=== PATIENT | female | born 1970 | race Caucasian/White ===

== ENCOUNTER → 2017-04-01 | Outpatient (REF) | payer OTHER ==
[~2017-04-01] MED LIST: CYCL10TA PO; EXCETAB68 PO; IBUP200C PO; MULTCAP8 PO; NAPR500T PO; VITA400C29 PO
== END ==
LOC: M LAB REF 13:24
PROVIDERS: ATTEND Obstetrics & Gynecology
DX: Z12.4 Encounter for screening for malignant neoplasm of cervix (principal)

== ENCOUNTER 2017-04-03 14:01 | Emergency (ER) | payer OTHER ==
[~2017-04-03] VITALS: Ht 162.6 cm; Wt 68.0 kg
[2017-04-03 14:02] VITALS: BP 150/63
[2017-04-03] MEDS ORDERED: MULTCAP8 PO (14:19)
[2017-04-03] MEDS ORDERED: EXCETAB68 PO (14:19)
[2017-04-03] MEDS ORDERED: IBUP200C PO (14:19)
[2017-04-03] MEDS ORDERED: VITA400C29 PO (14:19)
[2017-04-03] MEDS ORDERED: NAPR500T PO (14:36)
[2017-04-03] MEDS ORDERED: CYCL10TA PO (14:36)
== END 2017-04-03 15:35 | disposition home or self-care (01) ==
LOC: M ED 14:40
DX: S46.811A Strain of other muscles, fascia and tendons at shoulder and upper arm level, right arm, initial encounter (principal); X50.3XXA Overexertion from repetitive movements, initial encounter; Y92.89 Other specified places as the place of occurrence of the external cause; Y93.89 Activity, other specified; Y99.0 Civilian activity done for income or pay; F17.200 Nicotine dependence, unspecified, uncomplicated; Z79.899 Other long term (current) drug therapy; Z88.0 Allergy status to penicillin; Z91.040 Latex allergy status

== ENCOUNTER 2017-04-08 17:40 | Emergency (ER) | payer OTHER ==
[~2017-04-08] VITALS: Ht 165.1 cm; Wt 67.6 kg
[2017-04-08] MEDS ORDERED: IPRATROPIUM 0.5MG/ALBUTEROL 2.5MG INH SOL UD 3ML (DUONEB)(J7620) NEB ONE (19:15)
[2017-04-08] MEDS ORDERED: predniSONE 20 MG TAB PO ONE (19:15)
--- NOTE | 2017-04-08 19:44 | REP ---
Clinical: Cough. Technique: PA and lateral. Comparison: None. Findings: Subtle basilar atelectasis suggested. No focal consolidation. Mediastinum and cardiac silhouette normal. No effusion. No pneumothorax. Skeletal structures intact. Impression: Subtle basilar atelectasis. Signed by Mitesh Tian MD 04/08/2017 07:35 P
[2017-04-08] MEDS ORDERED: GUAISYP5 PO (19:49)
[2017-04-08] MEDS ORDERED: ALBU17IN INH (19:49)
[2017-04-08] MEDS ORDERED: ACET30TAB PO (19:49)
[2017-04-08] MEDS ORDERED: PRED20TA PO (19:49)
[2017-04-08 19:54] VITALS: BP 114/64
== END 2017-04-08 20:03 | disposition home or self-care (01) ==
LOC: M ED 19:25
DX: J44.0 Chronic obstructive pulmonary disease with (acute) lower respiratory infection (principal); J98.11 Atelectasis; F17.210 Nicotine dependence, cigarettes, uncomplicated; Z88.0 Allergy status to penicillin

== ENCOUNTER 2017-04-22 15:27 | Emergency (ER) | payer OTHER ==
[~2017-04-22] VITALS: Ht 162.6 cm; Wt 68.0 kg
[~2017-04-22 15:27] MED LIST changes: +ACET30TAB PO; +ALBU17IN INH; +GUAISYP5 PO; +PRED20TA PO
[2017-04-22 15:28] VITALS: BP 119/73
[2017-04-22] MEDS ORDERED: ALBU17IN INH (16:08)
[2017-04-22] MEDS ORDERED: ZITHTAB PO (16:08)
== END 2017-04-22 16:20 | disposition home or self-care (01) ==
LOC: M ED 16:13
DX: J44.0 Chronic obstructive pulmonary disease with (acute) lower respiratory infection (principal); F17.200 Nicotine dependence, unspecified, uncomplicated; Z88.0 Allergy status to penicillin; Z91.040 Latex allergy status; Z79.899 Other long term (current) drug therapy

== ENCOUNTER 2017-06-27 00:37 | Emergency (ER) | payer OTHER ==
[~2017-06-27 00:37] MED LIST changes: -IBUP200C PO; +IBUP200C10 PO; +VITA-110 PO; -VITA400C29 PO; +ZITHTAB PO
[2017-06-27 00:53] VITALS: BP 116/59
[2017-06-27] MEDS ORDERED: DERMABOND TOPICAL SKIN ADHESIVE TOP ONE (01:45)
== END 2017-06-27 02:35 | disposition home or self-care (01) ==
LOC: M ED 00:37
DX: S61.011A Laceration without foreign body of right thumb without damage to nail, initial encounter (principal); W27.4XXA Contact with kitchen utensil, initial encounter; Y92.511 Restaurant or cafe as the place of occurrence of the external cause; Y93.G1 Activity, food preparation and clean up; Y99.0 Civilian activity done for income or pay; J45.909 Unspecified asthma, uncomplicated; G43.909 Migraine, unspecified, not intractable, without status migrainosus; Z88.0 Allergy status to penicillin; Z91.040 Latex allergy status

== ENCOUNTER 2017-06-30 14:19 | Emergency (ER) | payer OTHER ==
[~2017-06-30] VITALS: Ht 165.1 cm; Wt 76.2 kg
[2017-06-30] MEDS ORDERED: predniSONE 20 MG TAB PO ONE (16:00)
[2017-06-30] MEDS ORDERED: CLINDAMYCIN 150 MG CAP PO ONE (16:00)
[2017-06-30] MEDS ORDERED: ALBUTEROL 90 MCG/ACT 8GM HFA INHALER INH ONE (16:00)
[2017-06-30] MEDS ORDERED: ALBU17IN INH (16:01)
[2017-06-30] MEDS ORDERED: CLEO300C2 PO (16:01)
[2017-06-30] MEDS ORDERED: PRED10TA2 PO (16:01)
[2017-06-30 16:16] VITALS: BP 124/78
== END 2017-06-30 16:17 | disposition home or self-care (01) ==
LOC: M ED 14:19
DX: Z77.120 Contact with and (suspected) exposure to mold (toxic) (principal); J45.901 Unspecified asthma with (acute) exacerbation; J06.9 Acute upper respiratory infection, unspecified; H66.92 Otitis media, unspecified, left ear; F17.210 Nicotine dependence, cigarettes, uncomplicated; Z91.040 Latex allergy status; Z88.0 Allergy status to penicillin

== ENCOUNTER 2017-10-06 01:14 | Emergency (ER) | payer OTHER ==
[~2017-10-06] VITALS: Ht 165.1 cm; Wt 65.5 kg
[~2017-10-06 01:14] MED LIST changes: +CLEO300C2 PO; +PRED10TA2 PO
[2017-10-06 01:15] VITALS: BP 120/71
--- NOTE | 2017-10-06 08:45 | REP ---
Clinical: Trauma . Technique: Internal rotation, external rotation, and Y view. Findings: No acute fracture or dislocation. The acromioclavicular and glenohumeral joints are intact. No periarticular calcifications or degenerative changes are appreciated. Sub acromial space is normal. Surrounding soft tissues are unremarkable. Y-view demonstrates chronic bowing to the humeral shaft. Impression: No acute fracture or dislocation. Signed by Mitesh Tian MD 10/06/2017 08:35 A
== END 2017-10-06 05:30 | disposition home or self-care (01) ==
LOC: M ED 01:14
DX: S40.012A Contusion of left shoulder, initial encounter (principal); W22.8XXA Striking against or struck by other objects, initial encounter; Y92.89 Other specified places as the place of occurrence of the external cause; Y93.89 Activity, other specified; Y99.8 Other external cause status; G43.909 Migraine, unspecified, not intractable, without status migrainosus; Z88.0 Allergy status to penicillin; Z91.040 Latex allergy status; F17.210 Nicotine dependence, cigarettes, uncomplicated

== ENCOUNTER 2019-05-21 19:45 | Emergency (ER) | payer MEDICAID, OTHER, SELFPAY ==
[~2019-05-21] VITALS: Ht 165.1 cm; Wt 70.5 kg
[~2019-05-21 19:45] MED LIST changes: +ACET-716 PO; -ACET30TAB PO; -IBUP200C10 PO; +IBUP200C25 PO; +NAPR-837 PO; -NAPR500T PO
[2019-05-21 19:46] VITALS: BP 128/70
[2019-05-21] MEDS ORDERED: TETRACAINE 0.5% OPHTH SOLN 4ML OS ONE (20:15)
[2019-05-21] MEDS ORDERED: FLUORESCEIN OPHTH 1 MG STRIP OS ONE (20:15)
[2019-05-21] MEDS ORDERED: ERYTHROMYCIN OPHTH OINT OS ONE (20:30)
[2019-05-21] MEDS ORDERED: ERYT1OIN26 OS (20:38)
== END 2019-05-21 20:47 | disposition home or self-care (01) ==
LOC: M ED 19:45
DX: H10.022 Other mucopurulent conjunctivitis, left eye (principal); G43.109 Migraine with aura, not intractable, without status migrainosus; Z72.0 Tobacco use; Z88.0 Allergy status to penicillin; Z91.040 Latex allergy status

== ENCOUNTER 2020-09-23 11:23 | Emergency (ER) | payer MEDICAID, OTHER ==
[~2020-09-23] VITALS: Ht 165.1 cm; Wt 71.3 kg
[~2020-09-23 11:23] MED LIST changes: +CYCL-707 PO; -CYCL10TA PO; +ERYT5OIN25 OS
[2020-09-23] MEDS ORDERED: IMIT100T PO (11:36)
[2020-09-23 12:46] LABS: BILIRUBIN, URINE MANUAL OBSCURED (NEGATIVE); GLUCOSE, URINE (UA) MANUAL OBSCURED mg/dL (NEGATIVE); KETONE, URINE MANUAL OBSCURED mg/dL (NEGATIVE); UROBILINOGEN, URINE MANUAL OBSCURED mg/dl (NORMAL)
[2020-09-23 12:54] LABS: BACTERIA, URINE MOD AMOUNT; HYALINE CAST, URINE NONE SEEN /lpf (0-1); RBC, URINE TNTC /hpf (0-3); SQUAMOUS EPITHELIAL CELL URINE SMALL AMOUNT /hpf (SMALL AMT)
[2020-09-23 13:31] LABS: BASO # 0.1 10^3/uL (0.0-0.2); BASO % 0.9 % (0.0-1.0); EOS # 0.2 10^3/uL (0.0-0.5); EOS % 1.4 % (0.0-3.0); HEMATOCRIT 34.1 % (36.0-47.0); HEMOGLOBIN 11.3 g/dl (12.0-15.5); LYMPH # 3.7 10^3/uL (1.5-5.0); MEAN CORPUSCULAR HEMOGLOBIN 28.5 pg (27.0-33.0); MEAN CORPUSCULAR HGB CONC 33.1 g/dl (32.0-36.5); MEAN CORPUSCULAR VOLUME 85.9 fl (80.0-96.0); MONO # 1.1 10^3/uL (0.0-0.8); NEUTROPHILS # 8.6 10^3/uL (1.5-8.5); NEUTROPHILS % 62.2 % (36.0-66.0); PLATELET COUNT, AUTOMATED 450 10^3/uL (150-450); RED BLOOD COUNT 3.97 10^6/uL (4.00-5.40); WHITE BLOOD COUNT 13.8 10^3/uL (4.0-10.0)
[2020-09-23 13:55] LABS: ALBUMIN 3.8 GM/DL (3.2-5.2); ALT/SGPT 20 U/L (12-78); BILIRUBIN,DIRECT < 0.1 MG/DL (0.0-0.2); BILIRUBIN,TOTAL 0.2 MG/DL (0.2-1.0); TOTAL PROTEIN 6.7 GM/DL (6.4-8.2)
[2020-09-23 14:15] LABS: HCG, SERUM QUALITATIVE NEGATIVE (NEGATIVE)
[2020-09-23 15:20] LABS: BLOOD UREA NITROGEN 9 MG/DL (7-18); CARBON DIOXIDE LEVEL 29 mmol/L (20-29); CHLORIDE LEVEL 104 MEQ/L (98-107); CREATININE FOR GFR 0.75 MG/DL (0.55-1.30); GLOMERULAR FILTRATION RATE > 60.0 (>51); GLUCOSE, FASTING 87 MG/DL (70-100); SODIUM LEVEL 140 MEQ/L (136-145)
[2020-09-23] MEDS ORDERED: ISOVUE-370 76% 100ML VIAL As Ordered ONE (15:28)
--- NOTE | 2020-09-23 16:35 | REP ---
INDICATION: hematuria, fmh bladder cancer, urogram. COMPARISON: None. TECHNIQUE: CT abdomen and pelvis performed without IV contrast. CT abdomen pelvis performed with IV contrast as well, following intravenous administration of 100 cc of Isovue 370. Sagittal, coronal and 3D MIP reconstruction images are performed. FINDINGS: Lung bases: Show some minor subsegmental atelectatic change. Nothing acute. Liver: Few tiny subcentimeter low-density foci seen most consistent with small cysts and which need no further evaluation. Gallbladder: A no calcified stone or mass. No pericholecystic fluid. Common duct without dilatation. Spleen: Not enlarged. No focal lesion. Tiny splenule inferior to the spleen as anatomic variation. Adrenals: Normal. Pancreas: Normal. Kidneys: There are a couple of punctate hyperdensities in 1 or 2 pyramids in each kidney that may reflect very early calcification. There is no hydronephrosis, definite stone formation or perinephric fluid. No hydroureter. Contrast exam shows no solid mass. Ureters show normal course to the bladder without dilatation or stone with no filling defects in the ureters or collecting system. Small and large bowel: Unremarkable. Free fluid: None. Adenopathy: None. Appendix: Not inflamed. Osseous structures: No acute findings Pelvis: Bladder without wall thickening or stone. However, there is irregular 2.7 cm mass projecting into the bladder from its posterior left wall, suspicious for bladder tumor. Uterus anteverted tilted towards the right. No adnexal or pelvic mass. Small bowel loops and colon in the deep pelvis were unremarkable. No ventral or inguinal hernia nor pelvic lymphadenopathy. IMPRESSION: 1. A 2.7 cm irregular mass arising from the posterior bladder wall on the left. There are no other masses. This is suspicious for a bladder malignancy. I do not see stones or other findings to would suggest this is clot although bad is a differential diagnostic consideration. I favor the former. 2. Kidneys collecting systems and ureters without acute finding. There are subtle 1 mm densities within the pyramids, 1 or 2 on each side that may reflect some early calcification but no formed stone. 3. Collecting systems and ureters grossly intact. No renal mass. No other findings. <Electronically signed by Aaron Morales > 09/23/20 2213
[2020-09-23 17:25] VITALS: BP 128/60
--- NOTE | 2020-09-25 09:55 | ED PDOC ---
Post-Departure Follow-Up ct abd/p faxed to dr morrison for fu Alexanrdo Zhang MD Sep 25, 2020 09:55
== END 2020-09-23 17:25 | disposition home or self-care (01) ==
LOC: M ED 11:23
DX: R31.9 Hematuria, unspecified (principal); N32.9 Bladder disorder, unspecified; D64.9 Anemia, unspecified; G43.909 Migraine, unspecified, not intractable, without status migrainosus; F17.200 Nicotine dependence, unspecified, uncomplicated; F12.10 Cannabis abuse, uncomplicated; Z88.0 Allergy status to penicillin; Z91.040 Latex allergy status
CPT/HCPCS: 74178; 80048; 80076; 81000; 84703; 85025; 87086; 87661; 99284; Q9967

== ENCOUNTER → 2020-10-01 | Outpatient (REF) | payer OTHER ==
[~2020-10-01] MED LIST changes: +IMIT100T PO
== END ==
LOC: M SMT 13:18
PROVIDERS: ATTEND Urology
DX: R31.0 Gross hematuria (principal)

== ENCOUNTER → 2020-10-09 | Outpatient (REF) | payer OTHER ==
[2020-10-09 16:56] LABS: BASO # 0.1 10^3/uL (0.0-0.2); BASO % 0.9 % (0.0-1.0); EOS # 0.2 10^3/uL (0.0-0.5); EOS % 1.8 % (0.0-3.0); HEMATOCRIT 23.9 % (36.0-47.0); HEMOGLOBIN 7.3 g/dl (12.0-15.5); LYMPH # 2.9 10^3/uL (1.5-5.0); LYMPH % 23.6 % (24.0-44.0); MEAN CORPUSCULAR HEMOGLOBIN 26.4 pg (27.0-33.0); MEAN CORPUSCULAR HGB CONC 30.5 g/dl (32.0-36.5); MEAN CORPUSCULAR VOLUME 86.6 fl (80.0-96.0); MONO # 0.9 10^3/uL (0.0-0.8); MONO % 7.5 % (0.0-5.0); NEUTROPHILS # 8.2 10^3/uL (1.5-8.5); NEUTROPHILS % 65.3 % (36.0-66.0); PLATELET COUNT, AUTOMATED 629 10^3/uL (150-450); RED BLOOD COUNT 2.76 10^6/uL (4.00-5.40); WHITE BLOOD COUNT 12.5 10^3/uL (4.0-10.0)
[2020-10-09 17:26] LABS: ALBUMIN 3.4 GM/DL (3.2-5.2); ALT/SGPT 51 U/L (12-78); BILIRUBIN,TOTAL 0.3 MG/DL (0.2-1.0); BLOOD UREA NITROGEN 9 MG/DL (7-18); CALCIUM LEVEL 8.7 MG/DL (8.5-10.1); CARBON DIOXIDE LEVEL 27 MEQ/L (21-32); CHLORIDE LEVEL 107 MEQ/L (98-107); CREATININE FOR GFR 0.76 MG/DL (0.55-1.30); GLOMERULAR FILTRATION RATE > 60.0 (>51); GLUCOSE, FASTING 95 MG/DL (70-100); POTASSIUM SERUM 4.5 MEQ/L (3.5-5.1); SODIUM LEVEL 140 MEQ/L (136-145); TOTAL PROTEIN 6.5 GM/DL (6.4-8.2)
== END ==
LOC: M LAB REF 16:27
PROVIDERS: ATTEND Physician Assistant
DX: Z01.818 Encounter for other preprocedural examination (principal)

== ENCOUNTER → 2020-10-14 | Outpatient (CLI) | payer OTHER ==
[2020-10-14 12:34] LABS: HEMATOCRIT 23.3 % (36.0-47.0); MEAN CORPUSCULAR VOLUME 83.2 fl (80.0-96.0); PLATELET COUNT, AUTOMATED 649 10^3/uL (150-450); WHITE BLOOD COUNT 12.8 10^3/uL (4.0-10.0)
[2020-10-14 13:03] LABS: BLOOD UREA NITROGEN 9 MG/DL (7-18); CALCIUM LEVEL 8.7 MG/DL (8.5-10.1); CARBON DIOXIDE LEVEL 29 MEQ/L (21-32); CHLORIDE LEVEL 104 MEQ/L (98-107); CREATININE FOR GFR 0.91 MG/DL (0.55-1.30); GLOMERULAR FILTRATION RATE > 60.0 (>51); GLUCOSE, FASTING 108 MG/DL (70-100); SODIUM LEVEL 137 MEQ/L (136-145)
--- NOTE | 2020-10-14 14:56 | ECGEPIP ---
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
--- NOTE | 2020-10-14 20:50 | REP ---
INDICATION: GROSS HEMATURIA- EKG FIRST COMPARISON: 04/08/2017 TECHNIQUE: PA and lateral. FINDINGS: The mediastinum and cardiac silhouette are normal. The lung mathews are clear and without acute consolidation, effusion, or pneumothorax. The skeletal structures are intact and normal. IMPRESSION: No acute cardiopulmonary process. <Electronically signed by Mitesh Tian > 10/14/20 [id number]
== END ==
LOC: M LAB 11:50
PROVIDERS: ATTEND Urology
DX: R31.0 Gross hematuria (principal); N32.89 Other specified disorders of bladder; R94.31 Abnormal electrocardiogram [ECG] [EKG]

== ENCOUNTER → 2020-10-18 | Outpatient (CLI) | payer OTHER ==
[~2020-10-18] MED LIST changes: +ACET325T43 PO; +EXCETAB33 PO; +GARL500C2 PO; +KETO10TAB PO; +NICO1DIS12 TD; +[UNRECOGNIZED DRUG - OTHER] PO
== END ==
LOC: M LABSMTC 12:18
PROVIDERS: ATTEND Anesthesiology
DX: Z01.812 Encounter for preprocedural laboratory examination (principal); Z20.828 Contact with and (suspected) exposure to other viral communicable diseases

== ENCOUNTER 2020-10-23 10:02 | Day surgery (SDC) | payer OTHER ==
[~2020-10-23] VITALS: Ht 162.6 cm; Wt 74.4 kg
[~2020-10-23 10:02] MED LIST changes: -KETO10TAB PO; +LR 1,000 ML IV ONE
[2020-10-23] MEDS ORDERED: dexameTHASONE 4 MG/ML 1ML VIAL (J1100 PER 1MG) As Ordered ONE (10:49)
[2020-10-23] MEDS ORDERED: propofoL 200 MG/20 ML VIAL As Ordered ONE (10:49)
[2020-10-23] MEDS ORDERED: ACETAMINOPHEN 1000MG 100ML IV BTL (OFIRMEV) (J0131 PER 10MG) As Ordered ONE (10:49)
[2020-10-23] MEDS ORDERED: ONDANSETRON 4MG/2ML VIAL As Ordered ONE (10:49)
[2020-10-23] MEDS ORDERED: LIDOCAINE 2% 100MG/5ML SDV (FOR ANES.) As Ordered ONE (10:49)
[2020-10-23] MEDS ORDERED: ROCURONIUM BROMIDE 50 MG/5 ML VIAL As Ordered ONE (10:49)
[2020-10-23] MEDS ORDERED: SUGAMMADEX SODIUM 500 MG/5 ML VIAL (BRIDION) As Ordered ONE (10:49)
[2020-10-23] MEDS ORDERED: MIDAZOLAM INJ 2MG/2ML VIAL (J2250 PER 1MG) As Ordered ONE (10:50)
[2020-10-23] MEDS ORDERED: fentaNYL 100 MCG/2 ML INJECTION (J3010) As Ordered ONE ×2 (10:50→12:38)
[2020-10-23] MEDS ORDERED: ceFAZolin SOD 2 GM in IV 1 EA IV ONE (11:00)
[2020-10-23] MEDS ORDERED: PHENYLephrine HCL 500 MCG/5 ML (100MCG/ML) SYRINGE (J2370) As Ordered ONE (12:38)
[2020-10-23] MEDS ORDERED: ALBUTEROL SULFATE 2.5 MG/0.5 ML INH NEB SOLN As Ordered ONE (13:12)
[2020-10-23] MEDS ORDERED: IBUPROFEN 800 MG TAB As Ordered ONE (13:35)
[2020-10-23] MEDS ORDERED: fentaNYL 100 MCG/2 ML INJECTION (J3010) IV PRN (14:00)
[2020-10-23] MEDS ORDERED: MORPHINE 2 MG/ML 1ML VIAL (J2270) IV PRN (14:00)
[2020-10-23] MEDS ORDERED: ALBUTEROL SULFATE 2.5 MG/0.5 ML INH NEB SOLN INH ONE (14:00)
[2020-10-23] MEDS ORDERED: oxyCODONE 5MG TAB PO PRN (14:00)
[2020-10-23] MEDS ORDERED: METOCLOPRAMIDE INJ 10MG/2ML VIAL (J2765 PER 1) IV PRN (14:00)
[2020-10-23] MEDS ORDERED: ONDANSETRON 4MG/2ML VIAL IV PRN (14:00)
[2020-10-23] MEDS ORDERED: IBUPROFEN 800 MG TAB PO ONE (14:00)
[2020-10-23] MEDS ORDERED: LR 1,000 ML IV SCH (14:00)
[2020-10-23] MEDS ORDERED: ACETAMINOPHEN TAB 650MG DOSE (2X325MG) PO PRN (14:15)
[2020-10-23 14:20] VITALS: BP 118/57
--- NOTE | 2020-10-23 14:42 | RO ---
OPERATIVE NOTE DATE OF OPERATION: 10/23/2020 PREOPERATIVE DIAGNOSIS: Bladder tumor. POSTOPERATIVE DIAGNOSIS: Bladder tumor. PROCEDURE: Cystoscopy, transurethral resection of bladder tumor (between 2 and 5 cm), examination under anesthesia. SURGEON: Carl Fontenot MD ELECTRIC ARC WELDER: None. ANESTHESIA: General. OPERATIVE INDICATIONS: This is a 50-year-old female who was found to have approximately 2.5 cm bladder tumor on recent office cystoscopy. She was brought to the operating room today for treatment. DESCRIPTION OF PROCEDURE: The patient was brought to the operating room and general anesthesia was induced. Prophylactic antibiotics were infused. She was placed in dorsal lithotomy position and prepped and draped in usual sterile fashion. A bimanual pelvic exam under was then performed. It was negative for palpable bladder masses. The bladder was freely mobile. At this point resectoscope was inserted in the urethral meatus and advanced into the bladder using the visual obturator. The bladder was then thoroughly examined and the only abnormality seen was approximately 2.5 cm tumor just above the level of the left ureteral orifice. It was not involving the ureteral orifice. I then utilized bipolar loop to resect the tumor completely. I did resect down to the muscle layer. The tumor specimen was removed from the bladder and sent for pathologic analysis. I then cauterized the base of resection using the coagulation current. Once satisfied with hemostasis I then examined the left ureteral orifice and it continued to efflux clear urine without any difficulty. At this point the resectoscope was removed and an 18-Syrian Victor catheter was inserted into the bladder. The catheter was connected to gravity damage and this marked the conclusion of the procedure. The catheter balloon was filled with 10 mL of sterile water. The patient was taken out of dorsal lithotomy position, awakened from anesthesia and transported to recovery room in stable condition. ESTIMATED BLOOD LOSS: 5 mL. COMPLICATIONS: None. SPECIMEN: Bladder tumor. PLAN: The patient will follow up in urology clinic in approximately one week for catheter removal and to discuss pathology results. CASSANDRA
[2020-10-23] MEDS ORDERED: KETO10TAB PO (15:42)
== END 2020-10-23 14:30 | disposition home or self-care (01) ==
LOC: M SDC 10:02
PROVIDERS: ATTEND Urology
DX: C67.9 Malignant neoplasm of bladder, unspecified (principal); G43.909 Migraine, unspecified, not intractable, without status migrainosus; J45.909 Unspecified asthma, uncomplicated; F41.9 Anxiety disorder, unspecified; F32.9 Major depressive disorder, single episode, unspecified; Z79.899 Other long term (current) drug therapy; Z79.82 Long term (current) use of aspirin; Z91.040 Latex allergy status; Z91.010 Allergy to peanuts
CPT/HCPCS: 52235; 88305; J0131; J1100; J2250; J2370; J2405; J3010

== ENCOUNTER 2020-11-12 06:52 | Inpatient (IN) | payer OTHER ==
[~2020-11-12] VITALS: Ht 165.1 cm; Wt 76.5 kg
[~2020-11-12 06:52] MED LIST changes: +KETO10TAB PO; -LR 1,000 ML IV ONE
[2020-11-12] MEDS ORDERED: NICOTINE 21MG/24HR 1 EA TRANSDERMAL TD ONE (08:15)
[2020-11-12 08:42] LABS: HEMATOCRIT 25.4 % (36.0-47.0); HEMOGLOBIN 7.1 g/dl (12.0-15.5); MEAN CORPUSCULAR HEMOGLOBIN 21.5 pg (27.0-33.0); MEAN CORPUSCULAR VOLUME 76.7 fl (80.0-96.0); PLATELET COUNT, AUTOMATED 572 10^3/uL (150-450); RED BLOOD COUNT 3.31 10^6/uL (4.00-5.40)
[2020-11-12 09:16] LABS: ACETAMINOPHEN LEVEL < 2.0 UG/ML (10.0-30.0); ALBUMIN 3.4 GM/DL (3.2-5.2); ALT/SGPT 21 U/L (12-78); BILIRUBIN,DIRECT < 0.1 MG/DL (0.0-0.2); BILIRUBIN,TOTAL 0.1 MG/DL (0.2-1.0); BLOOD UREA NITROGEN 11 MG/DL (7-18); CALCIUM LEVEL 8.3 MG/DL (8.5-10.1); CARBON DIOXIDE LEVEL 26 MEQ/L (21-32); CHLORIDE LEVEL 108 MEQ/L (98-107); CREATININE FOR GFR 0.71 MG/DL (0.55-1.30); ETHYL ALCOHOL (ETHANOL) < 0.003 % (0.000-0.010); GLOMERULAR FILTRATION RATE > 60.0 (>51); GLUCOSE, FASTING 114 MG/DL (70-100); POTASSIUM SERUM 4.3 MEQ/L (3.5-5.1); SALICYLATE LEVEL 3.6 MG/DL (5.0-30.0); SODIUM LEVEL 141 MEQ/L (136-145); TOTAL PROTEIN 6.5 GM/DL (6.4-8.2)
[2020-11-12 09:24] LABS: AMPHETAMINES LEVEL URINE NEGATIVE (NEGATIVE); BARBITURATES URINE NEGATIVE (NEGATIVE); BENZODIAZEPINES URINE NEGATIVE (NEGATIVE); CANNABINOIDS URINE NEGATIVE (NEGATIVE); COCAINE METABOLITE URINE NEGATIVE (NEGATIVE); METHADONE URINE NEGATIVE (NEGATIVE); OPIATES URINE NEGATIVE (NEGATIVE); PHENCYCLIDINE URINE NEGATIVE (NEGATIVE)
[2020-11-12] MEDS ORDERED: ALBU8.5H INH (10:40)
[2020-11-12 14:54] LABS: RSV AMPLIFICATION NEGATIVE (NEGATIVE)
[2020-11-12] MEDS ORDERED: MAALOX 30 ML SUSP *UDC PO PRN (15:15)
[2020-11-12] MEDS ORDERED: MOM 30ML SUSPENSION UDC PO PRN (15:15)
[2020-11-12] MEDS ORDERED: IBUPROFEN 400 MG TAB PO PRN (15:15)
[2020-11-12] MEDS ORDERED: traZODone 50 MG TAB PO PRN (15:15)
[2020-11-12 17:28] VITALS: BP 126/60
[2020-11-12] MEDS: NICOTINE 21MG/24HR 1 EA TRANSDERMAL TD SCH (19:08)
[2020-11-12] MEDS ORDERED: LORazepam 1 MG TAB PO PRN (19:45)
[2020-11-13] MEDS: ALBUTEROL 90 MCG/ACT 8GM HFA INHALER INH PRN ×2 (05:48→09:37)
[2020-11-13 06:00] VITALS: BP 121/57
[2020-11-13] MEDS: NICOTINE 21MG/24HR 1 EA TRANSDERMAL TD SCH (09:00)
[2020-11-13] MEDS ORDERED: HYDR1SYP3 PO (10:47)
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
--- NOTE | 2020-11-13 12:15 | MHDSPDOC ---
[facility] Discharge Summary Discharge Summary DATE OF ADMISSION: Nov 12, 2020 at 15:02 DATE OF DISCHARGE: November 13, 2020 at 1202 DISCHARGE DIAGNOSES: Adjustment Disorder with Depressed Mood Asthma Tobacco Use Disorder Bladder Cancer, newly diagnosed Chief Complaint Patient is a 50 year old Single, Employed, Domiciled, Female who self- presented to the ED for numerous stressors and feelings of being overwhelmed due to recent diagnosis of Bladder Cancer and states increased anxiety and depression. . History of Present Illness HISTORY OF THE PRESENT ILLNESS: Patient is a 50 year old Single, Employed, Domiciled, Female who self-presented to the ED for numerous stressors and feelings of being overwhelmed due to recent diagnosis of Bladder Cancer and states increased anxiety and depression. She was diagnosed in September of the Bladder Cancer, she recently broke up with her boyfriend and moved into her parent's home but her youngest daughter age 19 decided to stay with her ex- boyfriend. She was reporting frustration and relationship issues with b oyfriend, parents, boss at work and both daughters. She states that due to her boyfriend's alcohol use (which she was unaware of his usage) she decided to leave him. She also reports frustration with living with her parents who are both elderly. She stated that when she informed her boss at work about her Cancer diagnosis, she went from working 43 hours a week to 10 hours a week. She is frustrated with her daughters who don't appear to be making education their priority which is making the patient upset. She states that she is trying to get a referral to see an oncologist in [place]. CONSULTANTS INVOLVED: TREATMENT AND PROGRESS ON THE UNIT: Patient was admitted to the [facility] on a 9.39 legal status he was afforded the following treatment modalities: 1) Individual Therapy 2) Group Therapy 3) Medication Management 4) Milieu Therapy 5) Safe Environment HOSPITAL COURSE: Patient was admitted to [facility] on a voluntary legal status, as she was requesting an admission for depression and anxiety. DISCHARGE ASSESSMENT: On initial interview, patient states, "I made a mistake. I don't want to stay here. I don't belong here. The patient having a meltdown is making me more anxious."` Patient states that she is overwhelmed with her cancer diagnosis, her daughters who have not been active in their current educations. She had reported disappointment with her youngest daughter who recently got a tattoo and was recently increasing her video game usage. She reports frustration with her alcoholic boyfriend with whom she did not know the extent of his addiction and this caused her abrupt termination of their re lationship and moving to her parent's home because she left her own apartment to live with the boyfriend. She states that she has increased stressors living with her elderly parents. She denies that she made suicidal statements, she also denies suicidal gestures, attempts, planning or intent. During the interview, patient wrote written request for discharge. She vehemently denies suicidal thoughts, reports continued depression but feels that this can be managed in the community with a therapist. She is not observed and denies psychotic symptoms of delusions, bizarre behaviors/statements, jimmy, flight of ideas, auditory or visual hallucinations. At the time of her initial interview, she was observed with normal mentation, reporting depression and anxiety but no harmful thoughts. She meets criteria for discharge and treatment team feels that she can be discharge today. MENTAL STATUS EXAMINATION ON DISCHARGE: Patient is a 50 year old Single, Employed, Domiciled, Female who self- presented to the ED for numerous stressors and feelings of being overwhelmed due to recent diagnosis of Bladder Cancer and states increased anxiety and depression. General Appearance: well groomed, appears stated age, hospital scrubs/clothing Build: thin Demeanor: other (animated) Eye Contact: average Activity: other (moderate hand gestures) Behavior: cooperative, other (exuberant and excited facial and hand gestures) Speech: clear, rapid (mildly rapid, ), reg/rate, rhythm, volume, other (mildly rapid) Mood: depressed, anxious Affect: full, congruent Thought Process: logical/linear, depressed (moderately depressed due to situational stressors) Thought Content (Delusions): denies SI, HI, AVH Thought Content (Other): none reported Thought Content (Aggressive): none reported Perception (Hallucinations): none reported Perception (Other): none reported Cognition (Impairment of): none reported Cognition(Intelligence Est.): average Oriented: Awake, Alert, Oriented times three Insight: good Judgment: Good Psychosis: Denies MEDICATIONS ON DISCHARGE: Continued on Albuterol inhaler. She was given a prescription for Hydroxyzine 50 mg twice daily PRN for Anxiety with 3 refills. PLAN/FOLLOWUP ARRANGEMENTS: Please see Textile Cutting Machine Operator's notes The amount of time spent in the coordination of care for this patient was approximately 10 minutes. Vital Signs/I&Os Vital Signs Date Time Temp Pulse Resp B/P (MAP) Pulse Ox O2 Delivery O2 Flow Rate FiO2 11/13/20 06:00 97.8 88 16 121/57 (78) 98 Room Air Laboratory Data Labs 24H Laboratory Tests 2 11/12/20 12:13: Coronavirus (COVID-19)(PCR) NEGATIVE, Influenza Type A (RT-PCR) NEGATIVE, Influenza Type B (RT-PCR) NEGATIVE, Respiratory Syncytial Virus (PCR) NEGATIVE Medications Scheduled PRN Albuterol Sulfate (Albuterol Sulfate Hfa) 8.5 Gm Hfa.aer.ad, 2 PUFFS INH QID PRN for SHORTNESS OF BREATH, (Reported) hydrOXYzine HCl (hydrOXYzine HCl) 50 Mg/25 Ml Solution, 50 MG PO BID PRN for ANXIETY/AGITATION, #14 Allergies Coded Allergies: Dust (Verified Allergy, Unknown, 10/18/20) NUTS (Verified Allergy, Unknown, 10/18/20) latex (Verified Allergy, Unknown, 05/21/19) mold (Verified Allergy, Unknown, 10/18/20) ARTUR SOSA NP Nov 13, 2020 12:15
[2020-11-13] MEDS ORDERED: HYDR50TA70 PO (12:44)
== END 2020-11-13 13:40 | disposition home or self-care (01) | DRG 754 ==
LOC: M ED 06:52 → M ED INP 15:02 → M PSY 17:02
PROVIDERS: ADMIT Psychiatry & Neurology Addiction Medicine; ATTEND Psychiatry & Neurology Psychiatry
DX: F43.21 Adjustment disorder with depressed mood (principal); C67.9 Malignant neoplasm of bladder, unspecified; J45.909 Unspecified asthma, uncomplicated; F17.200 Nicotine dependence, unspecified, uncomplicated; Z91.040 Latex allergy status; Z90.10 Acquired absence of unspecified breast and nipple